=== PATIENT | female | born 1985 | race Caucasian/White ===

== ENCOUNTER → 2016-03-14 | Outpatient (CLI) | payer BC, OTHER ==
[~2016-03-14] MED LIST: IBUP400T20 PO; IBUP800 PO; LEVO112T2 PO; OXYC1SOL5 PO; PREN0.01 PO; SERT-129 PO; SYNT125T PO
[2016-03-14 14:50] LABS: HEMATOCRIT 36.4 % (35.0-46.0); MEAN CELL VOLUME 83.8 FL (80.0-100.0); MEAN CORPUSCULAR HEMOGLOBIN 29.2 PG (27.0-34.0); MEAN CORPUSCULAR HGB CONC 34.8 % (32.0-36.0); PLATELET COUNT 208 TH/MM3 (150-450); RED BLOOD COUNT 4.35 MIL/MM3 (4.00-5.30); RED CELL DISTRIBUTION WIDTH 13.1 % (11.6-17.2); REVIEW FLAG FINAL; WHITE BLOOD COUNT 4.5 TH/MM3 (4.0-11.0)
== END ==
LOC: CPRE 14:07
PROVIDERS: ATTEND Specialist
DX: Z01.812 Encounter for preprocedural laboratory examination (principal)
CPT/HCPCS: 36415; 85027

== ENCOUNTER → 2016-03-16 | Day surgery (SDC) | payer BC, OTHER ==
--- NOTE | 2016-03-15 19:35 | MH ---
cc: KELSEY CRISOSTOMO DATE OF ADMISSION 03/16/2016 REASON FOR ADMISSION A 31-year-old female with chronic sinusitis and nasal obstruction for open septal reconstruction, bilateral inferior turbinectomy, bilateral maxillary antrostomy. REVIEW OF SYSTEMS Unremarkable. FAMILY HISTORY AND SOCIAL HISTORY Unremarkable. PHYSICAL EXAMINATION GENERAL: Well-appearing patient acute distress noted. HEENT: Exam reveals septal deviation, turbinate hypertrophy. LUNGS: Clear. CARDIOVASCULAR: Heart regular rate and rhythm. ABDOMEN: Soft and nontender. EXTREMITIES: Without cyanosis, clubbing or edema. NEUROLOGICAL: Alert, oriented, nonfocal neurologic exam. IMPRESSION A patient with chronic sinusitis and nasal obstruction for nasal sinus surgery. Instructed in the method of surgery and possible complication including anesthetic complications, cardiac difficulty, pulmonary difficulty, stroke, or even . Surgical complications including bleeding, infection, risk of transfusion, septal perforation, decreased sense of smell, bleeding and packing requirement. The patient appeared to agree, accept and understand above-mentioned risks and benefits. In addition no guarantees or warranties regarding outcome were given. We will therefore proceed with surgery. MD PIPER Cartagena/RUTH ANN /6:50 PM /7:24 PM
[~2016-03-16] VITALS: Ht 165.1 cm; Wt 66.9 kg
[~2016-03-16] MED LIST changes: +DO NOT ADM ANY ANTICOAGULANT DRUGS XX PRN; +EPINEPHrine HCL (1:1000) 1 MG/ML VIAL ONE; +EPINEPHrine HCL (1:1000) 30 MG/30 ML VIAL ONE; +FAMOTIDINE 20 MG/2 ML VIAL ONE; +INSULIN HUMAN REGULAR 1,000 UNITS/10 ML VIAL SQ PRN; +LACTATED RINGER'S 1000 ML IV SCH; +LIDOCAINE 1%/EPINEPHrine 1:100,000 SOLN 20 ML VIAL ONE; +MEPERIDINE HCL 25 MG/ML VIAL IV PRN; +METOPROLOL TARTRATE 25 MG TAB PO PRN; +MIDAZOLAM HCL 2 MG/2 ML VIAL ONE; +NEOSTIGMINE 3 MG/3 ML SYR IV ONE; +ONDANSETRON HCL 4 MG/2 ML VIAL IV PUSH ONE; +ONDANSETRON HCL 4 MG/2 ML VIAL IV PUSH PRN; +PROPOFOL 200 MG/20 ML AMP IV ONE; +SODIUM CHLORID 0.9% 500 ML IV SCH; +fentaNYL CITRATE 250 MCG/5 ML AMP ONE; +oxyCODONE/ACETAMINOPHEN 5 MG/325 MG TAB ONE; +oxyCODONE/ACETAMINOPHEN 5 MG/325 MG TAB PO PRN
[2016-03-16 07:29] VITALS: BP 128/81; PULSE 56; RESP 20; TEMP 98.2; O2SAT 100
[2016-03-16 11:45] VITALS: BP 90/57; PULSE 53; RESP 20; TEMP 97.4; O2SAT 98
--- NOTE | 2016-03-28 10:26 | MP ---
cc: KELSEY CRISOSTOMO DATE OF OPERATION 03/16/2016 PREOPERATIVE DIAGNOSIS Nasal obstruction, chronic sinusitis. PROCEDURE Open septal reconstruction bilateral inferior turbinectomy, submucous resection of bilateral maxillary antrostomy ANESTHESIA: General anesthesia ESTIMATED BLOOD LOSS Minimal. COMPLICATIONS: No complications. SURGEON: Kelsey Crisostomo MD. OPERATION FOLLOWS: Prepped, draped usual fashion. 1% Xylocaine with 1:100,000 epinephrine injected uncinates, septum, inferior turbinates, middle meatus bilaterally. 1:1000 adrenaline soaked pledgets placed in the nasal area, under endoscopic visualization natural antrostomy enlarged left side, then enlarged at right side. Once this was achieved mucoperichondrial incision made on the left side of the septum a mucoperichondrial flap was elevated. Some cartilage removed from the nasal airway and nasal septum to the nasal airway and reduced the nasal fracture. Once this was achieved a portion of the inferior turbinate was removed with the Coblator probe submucosally bilaterally, significantly reducing the nasal obstruction improve nasal airway and sparing mucosa. No active bleeding noted. The patient tolerated procedure well. MD PIPER Cartagena/alisa /5:35 PM /10:23 AM
== END | disposition home or self-care (01) ==
LOC: HSDC 06:32
PROVIDERS: ATTEND Specialist
DX: J34.89 Other specified disorders of nose and nasal sinuses (principal); J34.2 Deviated nasal septum; J32.9 Chronic sinusitis, unspecified; J34.3 Hypertrophy of nasal turbinates
CPT/HCPCS: 00160; 30140; 30520; J0171; J2250; J2405; J2710; J3010; J7120